=== PATIENT | male | born 1975 | race Caucasian/White ===

== ENCOUNTER 2019-02-20 09:31 | Inpatient (IN) | payer OTHER ==
[~2019-02-20] VITALS: Ht 167.6 cm; Wt 117.4 kg
[~2019-02-20 09:31] MED LIST: ASPI81TA45 PO; GABA300C10 PO; GLIP5TAB10 PO; HYDR-3307 PO; INSU100I11 SQ-INSULIN; LOSA25TA25 PO; MELO7.5T31 PO; METF500T17 PO; METH750T2 PO; ONDA4TAB13 PO; PANT40TA5 PO; PROP60CA PO; SUCR1TAB33 PO
--- NOTE | 2019-02-20 10:25 | NUR ---
PT TO ED FOR N/V AND DIZZINESS SINCE WEDNESDAY. PT CONNECTED TO MONITORS. TACHY, 120S. ALL OTHER VSS ON RA. EDPA TO BS FOR ASSESSMENT. FSBG 338. AWAITING ORDERS.
--- NOTE | 2019-02-20 10:46 | NUR ---
PT RESTING IN ROOM. HTN 191/110, TACHY 120s, ALL OTHER VSS ON RA. LAB TO BS TO DRAW. AWAITING RESULTS. 2 RNs ATTEMPTING IV. MAY NEED US GUIDED IV. NO NEEDS EXPRESSED. CALL LIGHT WTIHIN REACH.
[2019-02-20 10:56] LABS: MEAN CORPUSCULAR HEMOGLOBIN 29.1 pg (27.5-34.5); MEAN CORPUSCULAR HGB CONC 32.6 g/dL (33.2-36.2); MEAN CORPUSCULAR VOLUME 89.2 fL (81-97); PLATELET COUNT 264 x10^3/uL (130-400); RED BLOOD COUNT 5.17 x10^6/uL (4.38-5.82); RED CELL DISTRIBUTION WIDTH 12.4 % (9.4-14.8)
[2019-02-20 10:58] LABS: MD YES
[2019-02-20] MEDS ORDERED: SODIUM CHLORIDE 0.9% 1,000ML IVBOLUS ONE ×2 (11:00→11:30)
[2019-02-20] MEDS ORDERED: ONDANSETRON 2MG/ML, 2ML IVPush ONE (11:00)
[2019-02-20] MEDS ORDERED: MORPHINE SULFATE 4 MG/ML, 1ML IVPush PRN (11:00)
[2019-02-20 11:07] LABS: ALANINE AMINOTRANSFERASE 16 U/L (12-78); ALBUMIN 2.9 g/dL (3.4-5.0); ANION GAP 15 mmol/L (5-15); CALCIUM 9.4 mg/dL (8.5-10.1); CHLORIDE 98 mmol/L (98-107); CREATININE 1.02 mg/dL (0.7-1.3)
[2019-02-20] MEDS ORDERED: MORPHINE SULFATE 4 MG/ML, 1ML ONE (11:07)
[2019-02-20] MEDS ORDERED: ONDANSETRON 2MG/ML, 2ML ONE (11:07)
[2019-02-20 11:09] LABS: ALKALINE PHOSPHATASE 110 U/L (45-117); BILIRUBIN,TOTAL 1.4 mg/dL (0.2-1.0); TOTAL PROTEIN 8.2 g/dL (6.4-8.2)
--- NOTE | 2019-02-20 11:16 | NUR ---
PT RESTING IN ROOM. VS UNCHANGED. IV ESTABLISHED AND MEDICATIONS ADMINISTERED. IVF INFUSING. NO NEEDS EXPRESSED. CALL LIGHT IN REACH. AWAITING LAB RESULTS.
[2019-02-20 11:36] LABS: <PLATELET ESTIMATE> ADEQUATE; <PLT MORPHOLOGY> NORMAL PLT MORPH; BANDS%(MANUAL) 3 % (0-7); LYMPH#(MANUAL) 1.87 x10^3/uL (1-3.4); LYMPHS% (MANUAL) 8 % (22-44); MONOS% (MANUAL) 3 % (2-9); POLYCHROMASIA 1+; SEG#(MANUAL) 20.12 x10^3/uL (1.8-6.8); SEGS% (MANUAL) 86 % (42-75)
[2019-02-20 11:48] LABS: ACETONE, SERUM Large (80mg/dL) mg/dL (Negative)
--- NOTE | 2019-02-20 11:48 | NUR ---
PT RESTING IN ROOM. VS UNCHANGED. IVF INFUSING. LAB AT BS AT THIS TIME TO DRAW ADD ON LABS. NO NEEDS EXPRESSED. CALL LIGHT IN REACH. PT STATES UNABLE TO PROVIDE UA SAMPLE AT THIS TIME.
[2019-02-20] MEDS ORDERED: LIDOCAINE-MPF 1%, 5ML INFIL ONE (12:00)
--- NOTE | 2019-02-20 12:12 | NUR ---
ANDERS RN: RN HELPED PT TAKE OF PANTS. PT WAS ABLE TO PROVIDE PRIMARY RN WITH A URINE SAMPLE. COLLECTED AND SENT TO LAB.
--- NOTE | 2019-02-20 12:20 | NUR ---
pt to ct at this time.
[2019-02-20 12:27] LABS: MICROSCOPIC AUTO
[2019-02-20 12:28] LABS: CULTURE INDICATED? NO
[2019-02-20] MEDS ORDERED: LIDOCAINE-MPF 1%, 5ML ONE (12:29)
--- NOTE | 2019-02-20 12:40 | NUR ---
pt back from ct.
--- NOTE | 2019-02-20 13:00 | NUR ---
pt resting in room with wet cloth over face. vs unchanged. no needs expressed. luis miguel light within reach. awaiting ct results.
[2019-02-20] MEDS ORDERED: VANCOMYCIN 2,000 MG in SODIUM CHLORIDE 0.9% 500 ML IV ONE (13:30)
[2019-02-20] MEDS ORDERED: VANCOMYCIN PER PHARMACY MC ONE (13:30)
--- NOTE | 2019-02-20 13:50 | NUR ---
christina to bs for I&D.
[2019-02-20] MEDS ORDERED: VANCOMYCIN 1,700 MG in SODIUM CHLORIDE 0.9% 250 ML IVPB SCH (14:02)
[2019-02-20] MEDS ORDERED: METOCLOPRAMIDE 5 MG/ML, 2ML ONE (14:06)
[2019-02-20] MEDS ORDERED: LABETALOL 5MG/ML, 20ML IVPush PRN (14:30)
[2019-02-20] MEDS ORDERED: GUAIFENESIN/DM 200-20MG, 10ML UDC PO PRN (14:30)
[2019-02-20] MEDS ORDERED: VANCOMYCIN PER PHARMACY MC PRN (14:30)
[2019-02-20] MEDS ORDERED: DOCUSATE 100 MG CAPSULE PO PRN (14:30)
[2019-02-20] MEDS ORDERED: METOCLOPRAMIDE 5 MG/ML, 2ML IVPush ONE (14:30)
[2019-02-20] MEDS ORDERED: LIDODERM 5% PATCH TD PRN (14:30)
[2019-02-20] MEDS ORDERED: hydrALAzine 20 MG/ML, 1ML IVPush PRN (14:30)
[2019-02-20 14:41] VITALS: BP 117/91
[2019-02-20] MEDS ORDERED: PHARMACOKINETIC MONITORING MC PRN (15:00)
[2019-02-20] MEDS ORDERED: PHARMACOKINETIC CONSULTATION MC ONE (15:00)
[2019-02-20] MEDS ORDERED: MELO7.5T5 PO (15:03)
[2019-02-20] MEDS ORDERED: GABA-826 PO (15:03)
[2019-02-20] MEDS ORDERED: MUPI15CR9 TP (15:04)
[2019-02-20] MEDS ORDERED: AMOX-291 PO (15:04)
[2019-02-20] MEDS ORDERED: CLAR-36 PO (15:04)
[2019-02-20 15:05] LABS: FREE T4 (FREE THYROXINE) 1.95 ng/dL (0.76-1.46); THYROID STIMULATING HORMONE 1.22 mIU/L (0.358-3.740)
[2019-02-20] MEDS ORDERED: OMNIPAQUE 350 MG/ML, 100ML BOTTLE ONE (15:33)
[2019-02-20 16:17] LABS: TROPONIN I < 0.015 ng/mL (0.000-0.045)
[2019-02-20] MEDS: GABAPENTIN 100 MG CAPSULE PO SCH ×2 (17:03→17:15)
[2019-02-20] MEDS: SUCRALFATE 1 GM TABLET PO SCH ×2 (17:03→20:25)
[2019-02-20] MEDS: HYDROcodone/APAP 10/325 MG TABLET PO PRN (17:13)
[2019-02-20] MEDS: ONDANSETRON ODT 4 MG PO PRN (17:14)
[2019-02-20] MEDS: PIPERACILLIN/TAZO/PMX 3.375GM 50 ML IV SCH ×2 (17:16→23:04)
[2019-02-20] MEDS: INSULIN LISPRO 100 UNITS/ML, PEN SQ-INSULIN SCH ×2 (17:46→20:30)
[2019-02-20 18:37] VITALS: BP 130/86
[2019-02-20] MEDS: SODIUM CHLORIDE 0.9% 1,000 ML IV SCH (20:31)
[2019-02-20] MEDS ORDERED: CLARITHROMYCIN 500 MG TABLET PO SCH (21:00)
[2019-02-20] MEDS ORDERED: AMOXICILLIN 500 MG CAPSULE PO SCH (21:00)
[2019-02-21 01:09] VITALS: BP 114/78
[2019-02-21] MEDS: HYDROcodone/APAP 10/325 MG TABLET PO PRN ×2 (04:26→18:08)
[2019-02-21] MEDS: ONDANSETRON ODT 4 MG PO PRN ×2 (04:27→10:23)
[2019-02-21] MEDS: PANTOPROZOLE 40MG TABLET PO SCH (04:33)
[2019-02-21 05:50] LABS: ALBUMIN 2.2 g/dL (3.4-5.0); ANION GAP 9 mmol/L (5-15); CALCIUM 8.6 mg/dL (8.5-10.1); CHLORIDE 107 mmol/L (98-107)
[2019-02-21 05:51] LABS: MEAN CORPUSCULAR HEMOGLOBIN 29.9 pg (27.5-34.5); MEAN CORPUSCULAR VOLUME 90.7 fL (81-97); MEAN PLATELET VOLUME 9.5 fL (7.4-10.4); PLATELET COUNT 274 x10^3/uL (130-400); RED BLOOD COUNT 4.53 x10^6/uL (4.38-5.82); RED CELL DISTRIBUTION WIDTH 12.7 % (9.4-14.8)
[2019-02-21 05:55] LABS: ALANINE AMINOTRANSFERASE 12 U/L (12-78); ALKALINE PHOSPHATASE 90 U/L (45-117); BILIRUBIN,TOTAL 0.6 mg/dL (0.2-1.0); CREATININE 0.94 mg/dL (0.7-1.3); TOTAL PROTEIN 6.9 g/dL (6.4-8.2)
[2019-02-21] MEDS: PIPERACILLIN/TAZO/PMX 3.375GM 50 ML IV SCH ×3 (06:19→23:35)
[2019-02-21 06:23] LABS: MD YES
[2019-02-21 06:25] LABS: <PLT MORPHOLOGY> NORMAL PLT MORPH; <RBC MORPHOLOGY> NORMAL; BAND#(MANUAL) 0.41 x10^3/uL; BANDS%(MANUAL) 2 % (0-7); BASOS% (MANUAL) 1 % (0-1); LYMPH#(MANUAL) 3.26 x10^3/uL (1-3.4); LYMPHS% (MANUAL) 16 % (22-44); MONOS#(MANUAL) 1.22 x10^3/uL (0.3-2.7); MONOS% (MANUAL) 6 % (2-9); SEGS% (MANUAL) 75 % (42-75)
[2019-02-21] MEDS: SUCRALFATE 1 GM TABLET PO SCH (07:00)
[2019-02-21 07:06] LABS: <PLATELET ESTIMATE> ADEQUATE
[2019-02-21 07:08] VITALS: BP 131/84
[2019-02-21] MEDS ORDERED: LOSARTAN 25MG TABLET PO SCH (09:00)
[2019-02-21] MEDS: INSULIN LISPRO 100 UNITS/ML, PEN SQ-INSULIN SCH ×4 (09:33→20:06)
[2019-02-21] MEDS: SODIUM CHLORIDE 0.9% 1,000 ML IV SCH (09:42)
[2019-02-21] MEDS: PROPRANOLOL 60 MG CAP.SA.24H PO SCH (10:23)
[2019-02-21] MEDS: GABAPENTIN 100 MG CAPSULE PO SCH ×3 (10:23→20:05)
[2019-02-21] MEDS: VANCOMYCIN 2,000 MG in SODIUM CHLORIDE 0.9% 500 ML IV SCH (11:57)
[2019-02-21] MEDS: SUCRALFATE 1 GM/10 ML UDC PO SCH ×3 (11:57→20:05)
[2019-02-21 13:10] VITALS: BP 121/85
[2019-02-21] MEDS ORDERED: DULA0.75 SQ (13:56)
[2019-02-21] MEDS: INSULIN GLARGINE 100 UNITS/ML, PEN SQ-INSULIN SCH ×2 (15:58→20:07)
[2019-02-21] MEDS: METOCLOPRAMIDE 5 MG/ML, 2ML IVPush PRN (18:11)
[2019-02-21 20:42] VITALS: BP 105/72
[2019-02-22 01:35] VITALS: BP 129/89
[2019-02-22] MEDS: METOCLOPRAMIDE 5 MG/ML, 2ML IVPush PRN ×3 (01:49→17:19)
[2019-02-22] MEDS ORDERED: HYDROcodone/APAP 5/325 TABLET PO ONE (02:30)
[2019-02-22] MEDS ORDERED: LORazepam 0.5MG TABLET PO ONE (03:00)
[2019-02-22] MEDS: VANCOMYCIN 2,000 MG in SODIUM CHLORIDE 0.9% 500 ML IV SCH (05:45)
[2019-02-22] MEDS: PANTOPROZOLE 40MG TABLET PO SCH (05:45)
[2019-02-22 06:22] LABS: MEAN CORPUSCULAR HGB CONC 32.5 g/dL (33.2-36.2); MEAN CORPUSCULAR VOLUME 89.2 fL (81-97); PLATELET COUNT 257 x10^3/uL (130-400); RED BLOOD COUNT 4.16 x10^6/uL (4.38-5.82); RED CELL DISTRIBUTION WIDTH 13.2 % (9.4-14.8)
[2019-02-22 06:29] LABS: ANION GAP 9 mmol/L (5-15); CALCIUM 8.6 mg/dL (8.5-10.1); CHLORIDE 110 mmol/L (98-107)
[2019-02-22 06:30] LABS: CREATININE 1.31 mg/dL (0.7-1.3)
[2019-02-22 06:55] LABS: BASOPHILS # (AUTO) 0.04 x10^3/uL (0-0.1); BASOPHILS % (AUTO) 0 % (0-1); EOSINOPHILS # (AUTO) 0.27 x10^3/uL (0-0.4); EOSINOPHILS % (AUTO) 2 % (1-7); LYMPHOCYTES # (AUTO) 2.78 x10^3/uL (1-3.4); LYMPHOCYTES % (AUTO) 17 % (22-44); MD SCAN; MONOCYTES # (AUTO) 0.82 x10^3/uL (0.2-0.8); MONOCYTES % (AUTO) 5 % (2-9); NEUTROPHILS # (AUTO) 12.24 x10^3/uL (1.8-6.8); NEUTROPHILS % (AUTO) 76 % (42-75)
[2019-02-22] MEDS: INSULIN LISPRO 100 UNITS/ML, PEN SQ-INSULIN SCH ×4 (07:00→20:14)
[2019-02-22 07:15] VITALS: BP 122/83
[2019-02-22] MEDS: PIPERACILLIN/TAZO/PMX 3.375GM 50 ML IV SCH (08:45)
[2019-02-22] MEDS: SUCRALFATE 1 GM/10 ML UDC PO SCH ×4 (08:45→20:14)
[2019-02-22] MEDS: PROPRANOLOL 60 MG CAP.SA.24H PO SCH (08:46)
[2019-02-22] MEDS: INSULIN GLARGINE 100 UNITS/ML, PEN SQ-INSULIN SCH ×2 (08:46→20:15)
[2019-02-22] MEDS: GABAPENTIN 100 MG CAPSULE PO SCH ×3 (08:46→20:14)
[2019-02-22] MEDS: SODIUM CHLORIDE 0.9% 1,000 ML IV SCH (11:30)
[2019-02-22 14:16] VITALS: BP 141/88
[2019-02-22] MEDS: morphine SULFATE 10 MG/ML, 1ML IVPush PRN (14:42)
[2019-02-22] MEDS: AMOXICILLIN/CLAV 875-125MG TABLET PO SCH (14:42)
[2019-02-22] MEDS ORDERED: POTASSIUM CHLORIDE 20 MEQ TAB.ER.PRT PO ONE (18:30)
[2019-02-22 20:08] VITALS: BP 131/83
[2019-02-23] MEDS: METOCLOPRAMIDE 5 MG/ML, 2ML IVPush PRN ×3 (01:19→15:20)
[2019-02-23] MEDS: morphine SULFATE 10 MG/ML, 1ML IVPush PRN ×2 (01:20→10:40)
[2019-02-23 01:54] VITALS: BP 134/81
[2019-02-23] MEDS: AMOXICILLIN/CLAV 875-125MG TABLET PO SCH ×2 (02:42→15:20)
[2019-02-23] MEDS: ONDANSETRON ODT 4 MG PO PRN ×3 (05:03→17:20)
[2019-02-23] MEDS: PANTOPROZOLE 40MG TABLET PO SCH (05:05)
[2019-02-23 06:23] LABS: CLOSTRIDIUM DIFFICILE ANTIGEN NEGATIVE; CLOSTRIDIUM DIFFICILE TOXIN NEGATIVE (Negative)
[2019-02-23 08:20] VITALS: BP 129/82
[2019-02-23] MEDS: GABAPENTIN 100 MG CAPSULE PO SCH ×3 (08:26→21:50)
[2019-02-23] MEDS: PROPRANOLOL 60 MG CAP.SA.24H PO SCH (08:27)
[2019-02-23] MEDS: SUCRALFATE 1 GM/10 ML UDC PO SCH ×4 (08:27→21:50)
[2019-02-23] MEDS: INSULIN GLARGINE 100 UNITS/ML, PEN SQ-INSULIN SCH ×2 (08:28→21:51)
[2019-02-23] MEDS: INSULIN LISPRO 100 UNITS/ML, PEN SQ-INSULIN SCH ×4 (08:29→21:51)
[2019-02-23 08:53] LABS: BASOPHILS # (AUTO) 0.01 x10^3/uL (0-0.1); BASOPHILS % (AUTO) 0 % (0-1); EOSINOPHILS # (AUTO) 0.31 x10^3/uL (0-0.4); EOSINOPHILS % (AUTO) 2 % (1-7); LYMPHOCYTES # (AUTO) 2.79 x10^3/uL (1-3.4); LYMPHOCYTES % (AUTO) 20 % (22-44); MD NO; MEAN CORPUSCULAR HGB CONC 32.6 g/dL (33.2-36.2); MEAN CORPUSCULAR VOLUME 89.1 fL (81-97); MEAN PLATELET VOLUME 8.5 fL (7.4-10.4); MONOCYTES # (AUTO) 0.73 x10^3/uL (0.2-0.8); MONOCYTES % (AUTO) 5 % (2-9); NEUTROPHILS # (AUTO) 10.44 x10^3/uL (1.8-6.8); NEUTROPHILS % (AUTO) 73 % (42-75); PLATELET COUNT 302 x10^3/uL (130-400); RED CELL DISTRIBUTION WIDTH 13.1 % (9.4-14.8)
[2019-02-23 09:04] LABS: ANION GAP 7 mmol/L (5-15); CALCIUM 8.7 mg/dL (8.5-10.1); CHLORIDE 108 mmol/L (98-107); CREATININE 1.65 mg/dL (0.7-1.3)
[2019-02-23] MEDS: SODIUM CHLORIDE 0.9% 1,000 ML IV SCH (10:40)
[2019-02-23 12:32] VITALS: BP 110/72
[2019-02-23] MEDS ORDERED: PHARMACY MAY ADJ FOR RENAL FX MC PRN (14:30)
[2019-02-23] MEDS: LACTOBACILLUS CHEW TABLET PO SCH ×3 (15:19→21:50)
[2019-02-23 19:43] VITALS: BP 122/82
[2019-02-23] MEDS: HYDROcodone/APAP 10/325 MG TABLET PO PRN (22:05)
[2019-02-24] MEDS: SODIUM CHLORIDE 0.9% 1,000 ML IV SCH ×2 (00:06→13:38)
[2019-02-24 00:30] VITALS: BP 97/68
[2019-02-24] MEDS: AMOXICILLIN/CLAV 875-125MG TABLET PO SCH ×2 (02:59→14:30)
[2019-02-24] MEDS: LACTOBACILLUS CHEW TABLET PO SCH ×4 (05:22→21:38)
[2019-02-24] MEDS: PANTOPROZOLE 40MG TABLET PO SCH (05:22)
[2019-02-24 07:24] VITALS: BP 135/84
[2019-02-24] MEDS: GABAPENTIN 100 MG CAPSULE PO SCH ×3 (08:37→21:38)
[2019-02-24] MEDS: PROPRANOLOL 60 MG CAP.SA.24H PO SCH (08:37)
[2019-02-24] MEDS: SUCRALFATE 1 GM/10 ML UDC PO SCH ×4 (08:37→21:38)
[2019-02-24] MEDS: METOCLOPRAMIDE 5 MG/ML, 2ML IVPush PRN ×2 (08:37→21:38)
[2019-02-24] MEDS: INSULIN GLARGINE 100 UNITS/ML, PEN SQ-INSULIN SCH ×2 (08:38→21:54)
[2019-02-24] MEDS: INSULIN LISPRO 100 UNITS/ML, PEN SQ-INSULIN SCH ×4 (08:39→21:53)
[2019-02-24 10:21] LABS: ANION GAP 9 mmol/L (5-15); CALCIUM 8.7 mg/dL (8.5-10.1); CHLORIDE 110 mmol/L (98-107); CREATININE 1.67 mg/dL (0.7-1.3)
[2019-02-24] MEDS: morphine SULFATE 10 MG/ML, 1ML IVPush PRN (11:24)
[2019-02-24 13:10] VITALS: BP 137/86
[2019-02-24 18:42] VITALS: BP 140/85
[2019-02-24] MEDS: HYDROcodone/APAP 10/325 MG TABLET PO PRN (21:54)
[2019-02-25 01:14] VITALS: BP 135/83
[2019-02-25] MEDS: AMOXICILLIN/CLAV 875-125MG TABLET PO SCH ×2 (02:42→15:04)
[2019-02-25] MEDS: PANTOPROZOLE 40MG TABLET PO SCH (05:08)
[2019-02-25] MEDS: LACTOBACILLUS CHEW TABLET PO SCH ×4 (05:08→20:09)
[2019-02-25 05:52] LABS: BASOPHILS % (AUTO) 1 % (0-1); EOSINOPHILS # (AUTO) 0.42 x10^3/uL (0-0.4); EOSINOPHILS % (AUTO) 3 % (1-7); LYMPHOCYTES # (AUTO) 2.87 x10^3/uL (1-3.4); LYMPHOCYTES % (AUTO) 18 % (22-44); MD NO; MEAN CORPUSCULAR HEMOGLOBIN 29.1 pg (27.5-34.5); MEAN CORPUSCULAR HGB CONC 32.3 g/dL (33.2-36.2); MEAN CORPUSCULAR VOLUME 90.2 fL (81-97); MEAN PLATELET VOLUME 8.3 fL (7.4-10.4); MONOCYTES # (AUTO) 1.01 x10^3/uL (0.2-0.8); MONOCYTES % (AUTO) 6 % (2-9); NEUTROPHILS # (AUTO) 11.22 x10^3/uL (1.8-6.8); NEUTROPHILS % (AUTO) 72 % (42-75); PLATELET COUNT 312 x10^3/uL (130-400); RED BLOOD COUNT 4.57 x10^6/uL (4.38-5.82); RED CELL DISTRIBUTION WIDTH 12.7 % (9.4-14.8)
[2019-02-25 06:03] LABS: ALANINE AMINOTRANSFERASE 14 U/L (12-78); ALBUMIN 2.2 g/dL (3.4-5.0); ANION GAP 6 mmol/L (5-15); CALCIUM 8.6 mg/dL (8.5-10.1); CHLORIDE 109 mmol/L (98-107); CREATININE 1.65 mg/dL (0.7-1.3)
[2019-02-25 06:05] LABS: ALKALINE PHOSPHATASE 68 U/L (45-117); BILIRUBIN,TOTAL 0.1 mg/dL (0.2-1.0); TOTAL PROTEIN 6.7 g/dL (6.4-8.2)
[2019-02-25 07:10] VITALS: BP 128/84
[2019-02-25] MEDS: SUCRALFATE 1 GM/10 ML UDC PO SCH ×4 (08:43→20:09)
[2019-02-25] MEDS: GABAPENTIN 100 MG CAPSULE PO SCH ×3 (08:43→20:08)
[2019-02-25] MEDS: METOCLOPRAMIDE 5 MG/ML, 2ML IVPush PRN ×2 (08:44→20:08)
[2019-02-25] MEDS: PROPRANOLOL 60 MG CAP.SA.24H PO SCH (08:44)
[2019-02-25] MEDS: INSULIN GLARGINE 100 UNITS/ML, PEN SQ-INSULIN SCH ×2 (08:45→22:01)
[2019-02-25] MEDS: INSULIN LISPRO 100 UNITS/ML, PEN SQ-INSULIN SCH ×4 (08:45→21:59)
[2019-02-25] MEDS: SODIUM CHLORIDE 0.9% 1,000 ML IV SCH ×2 (08:52→22:38)
[2019-02-25] MEDS ORDERED: INSULIN GLARGINE 100 UNITS/ML, PEN SQ-INSULIN ONE (12:30)
[2019-02-25 14:00] VITALS: BP 147/87
[2019-02-25] MEDS: morphine SULFATE 10 MG/ML, 1ML IVPush PRN (14:59)
[2019-02-25 18:43] VITALS: BP 162/101
[2019-02-25] MEDS: HYDROcodone/APAP 10/325 MG TABLET PO PRN (20:08)
[2019-02-25 21:50] VITALS: BP 126/83
[2019-02-26] MEDS: AMOXICILLIN/CLAV 875-125MG TABLET PO SCH ×2 (02:31→14:49)
[2019-02-26 04:46] VITALS: BP 156/89
[2019-02-26] MEDS: PANTOPROZOLE 40MG TABLET PO SCH (05:09)
[2019-02-26] MEDS: LACTOBACILLUS CHEW TABLET PO SCH ×4 (05:09→20:48)
[2019-02-26 07:12] VITALS: BP 160/90
[2019-02-26] MEDS: SUCRALFATE 1 GM/10 ML UDC PO SCH ×4 (07:33→20:48)
[2019-02-26] MEDS: METOCLOPRAMIDE 5 MG/ML, 2ML IVPush PRN ×2 (07:33→20:34)
[2019-02-26] MEDS: INSULIN LISPRO 100 UNITS/ML, PEN SQ-INSULIN SCH ×4 (07:34→20:49)
[2019-02-26] MEDS: SODIUM CHLORIDE 0.9% 1,000 ML IV SCH ×2 (07:38→18:18)
[2019-02-26] MEDS: GABAPENTIN 100 MG CAPSULE PO SCH ×3 (09:34→20:48)
[2019-02-26] MEDS: PROPRANOLOL 60 MG CAP.SA.24H PO SCH (09:35)
[2019-02-26] MEDS: INSULIN GLARGINE 100 UNITS/ML, PEN SQ-INSULIN SCH ×2 (09:36→20:49)
[2019-02-26] MEDS: morphine SULFATE 10 MG/ML, 1ML IVPush PRN (11:50)
[2019-02-26 12:10] LABS: BASOPHILS % (AUTO) 0 % (0-1); EOSINOPHILS # (AUTO) 0.32 x10^3/uL (0-0.4); EOSINOPHILS % (AUTO) 2 % (1-7); LYMPHOCYTES # (AUTO) 2.12 x10^3/uL (1-3.4); LYMPHOCYTES % (AUTO) 13 % (22-44); MD NO; MEAN CORPUSCULAR HEMOGLOBIN 29.5 pg (27.5-34.5); MEAN CORPUSCULAR HGB CONC 32.4 g/dL (33.2-36.2); MEAN CORPUSCULAR VOLUME 90.8 fL (81-97); MEAN PLATELET VOLUME 8.6 fL (7.4-10.4); MONOCYTES # (AUTO) 0.18 x10^3/uL (0.2-0.8); MONOCYTES % (AUTO) 1 % (2-9); NEUTROPHILS # (AUTO) 14.29 x10^3/uL (1.8-6.8); NEUTROPHILS % (AUTO) 85 % (42-75); PLATELET COUNT 325 x10^3/uL (130-400); RED BLOOD COUNT 4.63 x10^6/uL (4.38-5.82); RED CELL DISTRIBUTION WIDTH 12.7 % (9.4-14.8)
[2019-02-26 13:34] VITALS: BP 135/82
[2019-02-26 20:01] VITALS: BP 149/87
[2019-02-26] MEDS: HYDROcodone/APAP 10/325 MG TABLET PO PRN (20:48)
[2019-02-27] MEDS: AMOXICILLIN/CLAV 875-125MG TABLET PO SCH (02:30)
[2019-02-27] MEDS: SODIUM CHLORIDE 0.9% 1,000 ML IV SCH ×2 (02:38→17:38)
[2019-02-27 02:40] VITALS: BP 123/69
[2019-02-27 04:54] LABS: BASOPHILS # (AUTO) 0.06 x10^3/uL (0-0.1); BASOPHILS % (AUTO) 0 % (0-1); EOSINOPHILS # (AUTO) 0.46 x10^3/uL (0-0.4); EOSINOPHILS % (AUTO) 3 % (1-7); LYMPHOCYTES # (AUTO) 3.04 x10^3/uL (1-3.4); LYMPHOCYTES % (AUTO) 19 % (22-44); MD NO; MEAN CORPUSCULAR HEMOGLOBIN 29.3 pg (27.5-34.5); MEAN CORPUSCULAR HGB CONC 32.1 g/dL (33.2-36.2); MEAN CORPUSCULAR VOLUME 91.3 fL (81-97); MEAN PLATELET VOLUME 8.6 fL (7.4-10.4); MONOCYTES # (AUTO) 1.07 x10^3/uL (0.2-0.8); MONOCYTES % (AUTO) 7 % (2-9); NEUTROPHILS % (AUTO) 71 % (42-75); PLATELET COUNT 312 x10^3/uL (130-400); RED BLOOD COUNT 4.28 x10^6/uL (4.38-5.82); RED CELL DISTRIBUTION WIDTH 12.8 % (9.4-14.8)
[2019-02-27 05:05] LABS: ANION GAP 6 mmol/L (5-15); CALCIUM 8.4 mg/dL (8.5-10.1); CHLORIDE 110 mmol/L (98-107); CREATININE 1.49 mg/dL (0.7-1.3)
[2019-02-27] MEDS: LACTOBACILLUS CHEW TABLET PO SCH ×5 (05:57→21:00)
[2019-02-27] MEDS: PANTOPROZOLE 40MG TABLET PO SCH (05:57)
[2019-02-27] MEDS: INSULIN LISPRO 100 UNITS/ML, PEN SQ-INSULIN SCH ×4 (07:00→21:00)
[2019-02-27 07:20] VITALS: BP_SYST 114; BP_SYST 134; BP_DIAS 76; BP_DIAS 84
[2019-02-27] MEDS: PROPRANOLOL 60 MG CAP.SA.24H PO SCH (08:51)
[2019-02-27] MEDS: SUCRALFATE 1 GM/10 ML UDC PO SCH ×4 (08:51→22:19)
[2019-02-27] MEDS: GABAPENTIN 100 MG CAPSULE PO SCH ×3 (08:51→22:19)
[2019-02-27] MEDS: INSULIN GLARGINE 100 UNITS/ML, PEN SQ-INSULIN SCH ×2 (08:52→22:21)
[2019-02-27] MEDS: METOCLOPRAMIDE 5 MG/ML, 2ML IVPush PRN ×2 (08:57→22:22)
[2019-02-27] MEDS ORDERED: POTASSIUM CHLORIDE 40 MEQ in SODIUM CHLORIDE 0.9% 500 ML IV ONE (10:00)
[2019-02-27] MEDS ORDERED: PHARMACY INSTRUCTION MC SCH (10:00)
[2019-02-27] MEDS ORDERED: MAGNESIUM SULFATE PMX 2GM/50ML 50 ML IV ONE (10:00)
[2019-02-27] MEDS: PIPERACILLIN/TAZO/PMX 3.375GM 50 ML IV SCH ×3 (10:58→23:46)
[2019-02-27] MEDS: morphine SULFATE 10 MG/ML, 1ML IVPush PRN (11:10)
[2019-02-27 13:20] VITALS: BP 132/81
[2019-02-27 22:13] VITALS: BP 136/82
[2019-02-27] MEDS: HYDROcodone/APAP 10/325 MG TABLET PO PRN (22:21)
[2019-02-28 00:56] VITALS: BP 137/83
[2019-02-28] MEDS: SODIUM CHLORIDE 0.9% 1,000 ML IV SCH ×2 (03:37→13:30)
[2019-02-28] MEDS: LACTOBACILLUS CHEW TABLET PO SCH ×2 (05:18→09:24)
[2019-02-28] MEDS: PIPERACILLIN/TAZO/PMX 3.375GM 50 ML IV SCH ×2 (05:21→11:40)
[2019-02-28] MEDS: PANTOPROZOLE 40MG TABLET PO SCH (05:22)
[2019-02-28 06:13] LABS: BASOPHILS # (AUTO) 0.15 x10^3/uL (0-0.1); BASOPHILS % (AUTO) 1 % (0-1); EOSINOPHILS # (AUTO) 0.43 x10^3/uL (0-0.4); EOSINOPHILS % (AUTO) 3 % (1-7); LYMPHOCYTES # (AUTO) 3.55 x10^3/uL (1-3.4); LYMPHOCYTES % (AUTO) 25 % (22-44); MD NO; MEAN CORPUSCULAR HEMOGLOBIN 29.4 pg (27.5-34.5); MEAN CORPUSCULAR HGB CONC 32.6 g/dL (33.2-36.2); MEAN CORPUSCULAR VOLUME 90.2 fL (81-97); MEAN PLATELET VOLUME 8.5 fL (7.4-10.4); MONOCYTES # (AUTO) 0.93 x10^3/uL (0.2-0.8); MONOCYTES % (AUTO) 7 % (2-9); NEUTROPHILS # (AUTO) 9.16 x10^3/uL (1.8-6.8); NEUTROPHILS % (AUTO) 65 % (42-75); PLATELET COUNT 359 x10^3/uL (130-400); RED BLOOD COUNT 4.33 x10^6/uL (4.38-5.82)
[2019-02-28 06:25] LABS: ANION GAP 5 mmol/L (5-15); CALCIUM 8.2 mg/dL (8.5-10.1); CHLORIDE 110 mmol/L (98-107)
[2019-02-28 06:26] LABS: CREATININE 1.68 mg/dL (0.7-1.3)
[2019-02-28] MEDS: INSULIN LISPRO 100 UNITS/ML, PEN SQ-INSULIN SCH ×2 (07:00→11:00)
[2019-02-28 07:23] VITALS: BP 126/84
[2019-02-28] MEDS ORDERED: LOPERAMIDE 2 MG CAPSULE PO PRN (09:00)
[2019-02-28] MEDS: INSULIN GLARGINE 100 UNITS/ML, PEN SQ-INSULIN SCH (09:00)
[2019-02-28] MEDS: GABAPENTIN 100 MG CAPSULE PO SCH (09:22)
[2019-02-28] MEDS: PROPRANOLOL 60 MG CAP.SA.24H PO SCH (09:22)
[2019-02-28] MEDS: SUCRALFATE 1 GM/10 ML UDC PO SCH ×2 (09:22→11:41)
[2019-02-28] MEDS: POTASSIUM CHLORIDE 20 MEQ TAB.ER.PRT PO SCH ×2 (09:22→11:41)
[2019-02-28] MEDS: morphine SULFATE 10 MG/ML, 1ML IVPush PRN (11:41)
[2019-02-28 12:52] VITALS: BP 132/80
[2019-02-28] MEDS ORDERED: ACID1TAB7 PO (15:20)
[2019-02-28] MEDS ORDERED: AMOX1TAB64 PO ×2 (15:27)
[2019-02-28] MEDS ORDERED: SULF1TAB24 PO (15:27)
[2019-02-28] MEDS ORDERED: OMEP-110 PO (15:27)
[2019-02-28] MEDS ORDERED: SUCR1ORA5 PO (15:27)
[2019-02-28] MEDS ORDERED: INSU100I13 SQ-INSULIN (15:28)
[2019-02-28] MEDS ORDERED: SIMV40TA PO (15:31)
[2019-02-28] MEDS ORDERED: metFORMIN 500 MG TABLET PO SCH (17:00)
== END 2019-02-28 17:00 | disposition home or self-care (01) | DRG 853 ==
LOC: ED 12:07 → EDIP 13:23 → 4WST 14:19 → DCLOUNGE 02-28 16:37
PROVIDERS: ADMIT Internal Medicine; ATTEND Internal Medicine
PROC: 0J9C0ZZ Drainage of Pelvic Region Subcutaneous Tissue and Fascia, Open Approach (ICD-10-PCS; principal; 2019-02-20)
DX: A41.9 Sepsis, unspecified organism (principal); N17.0 Acute kidney failure with tubular necrosis; L02.214 Cutaneous abscess of groin; L03.314 Cellulitis of groin; Z68.41 Body mass index [BMI] 40.0-44.9, adult; R65.20 Severe sepsis without septic shock; B96.81 Helicobacter pylori [H. pylori] as the cause of diseases classified elsewhere; E86.0 Dehydration; E83.42 Hypomagnesemia; E87.6 Hypokalemia; I16.0 Hypertensive urgency; E11.43 Type 2 diabetes mellitus with diabetic autonomic (poly)neuropathy; K31.84 Gastroparesis; G89.29 Other chronic pain; M54.5 Low back pain; E11.65 Type 2 diabetes mellitus with hyperglycemia; A08.4 Viral intestinal infection, unspecified; B96.20 Unspecified Escherichia coli [E. coli] as the cause of diseases classified elsewhere; E66.9 Obesity, unspecified; Z79.4 Long term (current) use of insulin; Z86.19 Personal history of other infectious and parasitic diseases; Z90.49 Acquired absence of other specified parts of digestive tract; Z91.19 Patient's noncompliance with other medical treatment and regimen
CPT/HCPCS: 10060; 36415; 71046; 74177; 76770; 76857; 80048; 80053; 81001; 82010; 82800; 82962; 83036; 83605; 83690; 83735; 84100; 84132; 84439; 84443; 84484; 85025; 87040; 87046; 87070; 87077; 87186; 87205; 87324; 93005; 96361; 96374; 96375; G0378; J2405; J2543; J3370; J3480; Q0162; Q9967; J1815; J2270; J2765; J3475; J7030; J7040

== ENCOUNTER 2019-03-01 21:16 | Emergency (ER) | payer OTHER ==
[~2019-03-01] VITALS: Ht 167.6 cm; Wt 115.0 kg
[~2019-03-01 21:16] MED LIST changes: +ACID1TAB7 PO; +AMOX-291 PO; +AMOX1TAB64 PO; +CLAR-36 PO; +DULA0.75 SQ; +GABA-826 PO; +INSU100I13 SQ-INSULIN; +MELO7.5T5 PO; +MUPI15CR9 TP; +OMEP-110 PO; +SIMV40TA PO; +SUCR1ORA5 PO; +SULF1TAB24 PO
--- NOTE | 2019-03-01 21:55 | NUR ---
I WAS JUST DISCHARGED YESTERDAY FOR SEPSIS-REPORTS GROIN INFECTION REPORTED SOURCE. PT REPORTS N/V/D AND DIZZINESS TODAY. APPEARS PALE/VSS LINE PLACED/FROM WHICH LABS SENT
[2019-03-01] MEDS ORDERED: METOCLOPRAMIDE 5 MG/ML, 2ML IVPush ONE (22:00)
[2019-03-01] MEDS ORDERED: MORPHINE SULFATE 4 MG/ML, 1ML IVPush PRN (22:00)
[2019-03-01 22:09] LABS: MEAN CORPUSCULAR HGB CONC 32.8 g/dL (33.2-36.2); MEAN CORPUSCULAR VOLUME 88.3 fL (81-97); MEAN PLATELET VOLUME 8.3 fL (7.4-10.4); PLATELET COUNT 428 x10^3/uL (130-400); RED BLOOD COUNT 4.82 x10^6/uL (4.38-5.82); RED CELL DISTRIBUTION WIDTH 12.8 % (9.4-14.8)
[2019-03-01] MEDS ORDERED: PROCHLORPERAZINE 5 MG/ML, 2ML ONE (22:09)
[2019-03-01] MEDS ORDERED: MORPHINE SULFATE 4 MG/ML, 1ML ONE (22:10)
--- NOTE | 2019-03-01 22:10 | NUR ---
MEDICATED PER EMAR FOR ABD PAIN RATED 6/10
[2019-03-01 22:18] LABS: ALANINE AMINOTRANSFERASE 10 U/L (12-78); ALBUMIN 2.9 g/dL (3.4-5.0); ANION GAP 9 mmol/L (5-15); CALCIUM 9.3 mg/dL (8.5-10.1); CHLORIDE 102 mmol/L (98-107); CREATININE 1.85 mg/dL (0.7-1.3)
[2019-03-01 22:21] LABS: ALKALINE PHOSPHATASE 72 U/L (45-117); BILIRUBIN,TOTAL 0.3 mg/dL (0.2-1.0); TOTAL PROTEIN 8.5 g/dL (6.4-8.2)
--- NOTE | 2019-03-01 22:45 | NUR ---
REPORTS PAIN IMPROVED TO 6/10, NAUSEA COMPLETELY IMPROVED VITALS UPDATED UPDATED ON ESTIMATED POC
[2019-03-01 22:55] LABS: BASOPHILS # (AUTO) 0.32 x10^3/uL (0-0.1); BASOPHILS % (AUTO) 2 % (0-1); EOSINOPHILS # (AUTO) 0.24 x10^3/uL (0-0.4); EOSINOPHILS % (AUTO) 2 % (1-7); LYMPHOCYTES # (AUTO) 2.36 x10^3/uL (1-3.4); LYMPHOCYTES % (AUTO) 18 % (22-44); MD SCAN; MONOCYTES # (AUTO) 0.63 x10^3/uL (0.2-0.8); MONOCYTES % (AUTO) 5 % (2-9); NEUTROPHILS # (AUTO) 9.82 x10^3/uL (1.8-6.8); NEUTROPHILS % (AUTO) 73 % (42-75)
[2019-03-01] MEDS ORDERED: PROMETHAZINE 25 MG/ML, 1ML ONE (23:45)
--- NOTE | 2019-03-01 23:45 | NUR ---
Reviewed importance of filling outpatient abx. [facility] found open pharmacy with scripts in stock. ER provider re-wrote abx scripts as well as rx for nausea. Patient tolerating po fluids to bedside Medicated w/ IM phenergan for continued nausea per provider order
[2019-03-02] MEDS ORDERED: PROMETHAZINE 25 MG/ML, 1ML IM ONE
[2019-03-02 00:02] VITALS: BP 170/106
== END 2019-03-01 22:19 | disposition home or self-care (01) ==
LOC: ED 22:18
DX: K52.1 Toxic gastroenteritis and colitis (principal); R19.7 Diarrhea, unspecified; R11.2 Nausea with vomiting, unspecified; E10.65 Type 1 diabetes mellitus with hyperglycemia; M54.9 Dorsalgia, unspecified; G89.29 Other chronic pain; Z90.49 Acquired absence of other specified parts of digestive tract
CPT/HCPCS: 36415; 80053; 83690; 85025; 93005; 96372; 96374; 96375; 99284; J2270; J2550; J2765

== ENCOUNTER 2019-03-09 13:20 | Inpatient (IN) | payer OTHER ==
[~2019-03-09] VITALS: Ht 167.6 cm; Wt 126.0 kg
[2019-03-09 14:00] LABS: MEAN CORPUSCULAR HEMOGLOBIN 29.4 pg (27.5-34.5); MEAN CORPUSCULAR HGB CONC 33.2 g/dL (33.2-36.2); MEAN CORPUSCULAR VOLUME 88.6 fL (81-97); MEAN PLATELET VOLUME 8.8 fL (7.4-10.4); PLATELET COUNT 227 x10^3/uL (130-400); RED BLOOD COUNT 5.44 x10^6/uL (4.38-5.82); RED CELL DISTRIBUTION WIDTH 13.2 % (9.4-14.8)
[2019-03-09] MEDS ORDERED: METOCLOPRAMIDE 5 MG/ML, 2ML IVPush ONE (14:00)
[2019-03-09] MEDS ORDERED: MORPHINE SULFATE 4 MG/ML, 1ML IVPush PRN (14:00)
[2019-03-09] MEDS ORDERED: SODIUM CHLORIDE 0.9% 1,000ML IVBOLUS ONE ×2 (14:00→15:30)
[2019-03-09 14:11] LABS: ALBUMIN 2.8 g/dL (3.4-5.0); ANION GAP 14 mmol/L (5-15); CALCIUM 8.7 mg/dL (8.5-10.1); CHLORIDE 96 mmol/L (98-107)
--- NOTE | 2019-03-09 14:13 | NUR ---
URINE SENT TO LAB, PT UNABLE TO PROVIDE STOOL SAMPLE AT THIS TIME
[2019-03-09 14:27] LABS: ACETONE, SERUM Negative (Negative)
[2019-03-09 14:29] LABS: MD YES
[2019-03-09] MEDS ORDERED: MORPHINE SULFATE 4 MG/ML, 1ML ONE (14:29)
[2019-03-09] MEDS ORDERED: METOCLOPRAMIDE 5 MG/ML, 2ML ONE (14:29)
[2019-03-09 14:31] LABS: FIO2 ROOM AIR %
[2019-03-09 14:31] LABS: CULTURE INDICATED? YES; MICROSCOPIC INDICATED
[2019-03-09 14:34] LABS: ALBUMIN 2.8 g/dL (3.4-5.0); BILIRUBIN, DIRECT 0.2 mg/dL (0.1-0.2)
--- NOTE | 2019-03-09 14:35 | NUR ---
IV ESTABLISHED AND IVF INFUSING. PT MEDICATED PER MAR.
[2019-03-09 14:41] LABS: <PLATELET ESTIMATE> ADEQUATE; <PLT MORPHOLOGY> NORMAL PLT MORPH; ANISOCYTOSIS 1+; BAND#(MANUAL) 8.25 x10^3/uL; BANDS%(MANUAL) 22 % (0-7); MONOS#(MANUAL) 0.75 x10^3/uL (0.3-2.7); MONOS% (MANUAL) 2 % (2-9); PMNS WITH VACUOLES 1+; SEGS% (MANUAL) 76 % (42-75)
[2019-03-09 14:43] LABS: BILIRUBIN,INDIRECT 0.3 mg/dL (0.0-2.0); BILIRUBIN,TOTAL 0.5 mg/dL (0.2-1.0); TOTAL PROTEIN 8.3 g/dL (6.4-8.2)
--- NOTE | 2019-03-09 14:54 | NUR ---
PT TO CT
--- NOTE | 2019-03-09 15:07 | NUR ---
pt returned from ct
[2019-03-09] MEDS ORDERED: CEFTRIAXONE PMX 2GM/50ML 50 ML ONE (15:17)
[2019-03-09] MEDS ORDERED: CEFTRIAXONE PMX 2GM/50ML 50 ML IV ONE (15:30)
--- NOTE | 2019-03-09 16:09 | NUR ---
PT RESTING IN [facility], AWAITING BED ASSIGNMENT. IVF INFUSING
--- NOTE | 2019-03-09 16:46 | NUR ---
REPORT TO LUIZ LLAMAS
[2019-03-09] MEDS ORDERED: SODIUM CHLORIDE 0.9% 1,000 ML IV SCH (17:14)
[2019-03-09] MEDS ORDERED: ONDANSETRON ODT 4 MG PO PRN (17:30)
[2019-03-09] MEDS ORDERED: ACETAMINOPHEN 325 MG TABLET PO PRN (17:30)
[2019-03-09] MEDS ORDERED: ZOSYN PER PHARMACY MC PRN (17:30)
[2019-03-09] MEDS ORDERED: VANCOMYCIN PER PHARMACY MC PRN (17:30)
[2019-03-09] MEDS ORDERED: PHARMACOKINETIC MONITORING MC PRN (18:00)
[2019-03-09] MEDS ORDERED: VANCOMYCIN 2,000 MG in SODIUM CHLORIDE 0.9% 500 ML IV SCH (18:00)
[2019-03-09] MEDS ORDERED: PHARMACOKINETIC CONSULTATION MC ONE (18:00)
[2019-03-09 18:45] LABS: HEMOGLOBIN A1C 9.6 % (4.2-6.3)
[2019-03-09 19:42] VITALS: BP 134/79
[2019-03-09] MEDS: ONDANSETRON 2MG/ML, 2ML IVPush PRN (20:10)
[2019-03-09] MEDS: SUCRALFATE 1 GM/10 ML UDC PO SCH (20:11)
[2019-03-09] MEDS: LACTOBACILLUS CHEW TABLET PO SCH (20:12)
[2019-03-09] MEDS: HEPARIN 5,000 UNITS/ML, 1ML SQ SCH (20:12)
[2019-03-09] MEDS: INSULIN LISPRO 100 UNITS/ML, PEN SQ-INSULIN SCH (20:13)
[2019-03-09] MEDS: VANCOMYCIN 50 MG/ML ORAL SUSP PO SCH (20:25)
[2019-03-09] MEDS: PIPERACILLIN/TAZO/PMX 2.25GM 50 ML IVPB SCH (20:25)
[2019-03-10 01:10] LABS: CLOSTRIDIUM DIFFICILE ANTIGEN NEGATIVE; CLOSTRIDIUM DIFFICILE TOXIN NEGATIVE (Negative)
[2019-03-10 02:00] VITALS: BP 129/79
[2019-03-10] MEDS: VANCOMYCIN 50 MG/ML ORAL SUSP PO SCH (02:00)
[2019-03-10] MEDS ORDERED: PROMETHAZINE 25 MG/ML, 1ML IM ONE (04:00)
[2019-03-10] MEDS: HEPARIN 5,000 UNITS/ML, 1ML SQ SCH ×3 (04:11→20:11)
[2019-03-10 06:13] LABS: ANION GAP 11 mmol/L (5-15); CALCIUM 7.6 mg/dL (8.5-10.1); CHLORIDE 100 mmol/L (98-107); CREATININE 2.72 mg/dL (0.7-1.3)
[2019-03-10] MEDS: PIPERACILLIN/TAZO/PMX 2.25GM 50 ML IVPB SCH ×4 (06:37→18:03)
[2019-03-10 07:57] VITALS: BP 134/84
[2019-03-10] MEDS: SUCRALFATE 1 GM/10 ML UDC PO SCH ×4 (08:51→20:10)
[2019-03-10] MEDS: LACTOBACILLUS CHEW TABLET PO SCH ×3 (08:51→20:12)
[2019-03-10] MEDS: INSULIN LISPRO 100 UNITS/ML, PEN SQ-INSULIN SCH ×4 (08:52→20:11)
[2019-03-10] MEDS: INSULIN GLARGINE 100 UNITS/ML, PEN SQ-INSULIN SCH ×2 (09:43→20:12)
[2019-03-10] MEDS: PROMETHAZINE 25 MG/ML, 1ML IM PRN ×2 (12:24→19:13)
[2019-03-10 13:27] LABS: MEAN CORPUSCULAR HEMOGLOBIN 29.5 pg (27.5-34.5); MEAN CORPUSCULAR HGB CONC 33.3 g/dL (33.2-36.2); MEAN CORPUSCULAR VOLUME 88.7 fL (81-97); MEAN PLATELET VOLUME 8.9 fL (7.4-10.4); PLATELET COUNT 170 x10^3/uL (130-400); RED BLOOD COUNT 4.27 x10^6/uL (4.38-5.82); RED CELL DISTRIBUTION WIDTH 13.1 % (9.4-14.8)
[2019-03-10 13:33] LABS: HEMOGRAM NOTE RECHECKED
[2019-03-10 14:00] VITALS: BP 109/73
[2019-03-10 14:12] LABS: BASOPHILS # (AUTO) 0.01 x10^3/uL (0-0.1); BASOPHILS % (AUTO) 0 % (0-1); EOSINOPHILS # (AUTO) 0.44 x10^3/uL (0-0.4); EOSINOPHILS % (AUTO) 2 % (1-7); LYMPHOCYTES # (AUTO) 0.68 x10^3/uL (1-3.4); LYMPHOCYTES % (AUTO) 4 % (22-44); MD SCAN; MONOCYTES # (AUTO) 0.57 x10^3/uL (0.2-0.8); MONOCYTES % (AUTO) 3 % (2-9); NEUTROPHILS # (AUTO) 17.78 x10^3/uL (1.8-6.8); NEUTROPHILS % (AUTO) 91 % (42-75)
[2019-03-10 14:14] LABS: HCT (SEDRATE) 37.9 % (39.2-51.8)
[2019-03-10] MEDS: METOCLOPRAMIDE 5 MG/ML, 2ML IVPush PRN ×2 (15:38→20:07)
[2019-03-10] MEDS: SODIUM CHLORIDE 0.9% 1,000 ML IV SCH (18:03)
[2019-03-10 18:40] VITALS: BP 117/73
[2019-03-10] MEDS: OXYcodone IR 5MG TABLET PO PRN (20:10)
[2019-03-11] MEDS: SODIUM CHLORIDE 0.9% 1,000 ML IV SCH ×3 (00:26→20:57)
[2019-03-11] MEDS: METOCLOPRAMIDE 5 MG/ML, 2ML IVPush PRN ×3 (01:06→19:39)
[2019-03-11] MEDS: PIPERACILLIN/TAZO/PMX 2.25GM 50 ML IVPB SCH ×3 (01:06→12:06)
[2019-03-11] MEDS: OXYcodone IR 5MG TABLET PO PRN ×2 (01:12→20:58)
[2019-03-11 01:49] VITALS: BP 109/78
[2019-03-11] MEDS: HEPARIN 5,000 UNITS/ML, 1ML SQ SCH ×3 (05:32→20:59)
[2019-03-11 05:44] LABS: BASOPHILS # (AUTO) 0.03 x10^3/uL (0-0.1); BASOPHILS % (AUTO) 0 % (0-1); EOSINOPHILS # (AUTO) 0.75 x10^3/uL (0-0.4); EOSINOPHILS % (AUTO) 5 % (1-7); LYMPHOCYTES # (AUTO) 1.82 x10^3/uL (1-3.4); LYMPHOCYTES % (AUTO) 11 % (22-44); MD NO; MEAN CORPUSCULAR HEMOGLOBIN 29.4 pg (27.5-34.5); MEAN CORPUSCULAR HGB CONC 32.9 g/dL (33.2-36.2); MEAN CORPUSCULAR VOLUME 89.4 fL (81-97); MEAN PLATELET VOLUME 8.9 fL (7.4-10.4); MONOCYTES # (AUTO) 0.84 x10^3/uL (0.2-0.8); MONOCYTES % (AUTO) 5 % (2-9); NEUTROPHILS # (AUTO) 13.25 x10^3/uL (1.8-6.8); NEUTROPHILS % (AUTO) 79 % (42-75); PLATELET COUNT 152 x10^3/uL (130-400); RED BLOOD COUNT 3.92 x10^6/uL (4.38-5.82); RED CELL DISTRIBUTION WIDTH 13.5 % (9.4-14.8)
[2019-03-11 05:55] LABS: ALANINE AMINOTRANSFERASE 13 U/L (12-78); ANION GAP 9 mmol/L (5-15); CALCIUM 7.3 mg/dL (8.5-10.1); CHLORIDE 106 mmol/L (98-107)
[2019-03-11 05:57] LABS: ALKALINE PHOSPHATASE 60 U/L (45-117); BILIRUBIN,TOTAL 0.2 mg/dL (0.2-1.0); TOTAL PROTEIN 6.1 g/dL (6.4-8.2)
[2019-03-11] MEDS: INSULIN LISPRO 100 UNITS/ML, PEN SQ-INSULIN SCH ×4 (07:00→21:00)
[2019-03-11 07:52] VITALS: BP 113/82
[2019-03-11 08:37] LABS: C-REACTIVE PROTEIN, QUANT > 19.00 mg/dL (0.02-0.49)
[2019-03-11] MEDS: SUCRALFATE 1 GM/10 ML UDC PO SCH ×4 (08:54→20:57)
[2019-03-11] MEDS: LACTOBACILLUS CHEW TABLET PO SCH ×3 (08:54→21:00)
[2019-03-11] MEDS: POTASSIUM CHLORIDE 20 MEQ TAB.ER.PRT PO SCH ×2 (08:54→16:59)
[2019-03-11] MEDS: PROMETHAZINE 25 MG/ML, 1ML IM PRN ×3 (08:55→20:59)
[2019-03-11 08:59] LABS: HCT (SEDRATE) 35.1 % (39.2-51.8)
[2019-03-11] MEDS: INSULIN GLARGINE 100 UNITS/ML, PEN SQ-INSULIN SCH ×2 (09:01→20:59)
[2019-03-11 12:09] VITALS: BP 125/84
[2019-03-11] MEDS ORDERED: MAGNESIUM SULFATE 3 GM in SODIUM CHLORIDE 0.9% 100 ML IV ONE (12:30)
[2019-03-11] MEDS: PIPERACILLIN/TAZO/PMX 3.375GM 50 ML IV SCH (18:17)
[2019-03-11] MEDS: CHOLESTYRAMINE LIGHT 4GM PACKET PO SCH ×2 (18:18→21:00)
[2019-03-11 19:16] VITALS: BP 117/80
[2019-03-12] MEDS: PIPERACILLIN/TAZO/PMX 3.375GM 50 ML IV SCH ×5 (00:02→23:55)
[2019-03-12 02:22] VITALS: BP 139/90
[2019-03-12] MEDS: SODIUM CHLORIDE 0.9% 1,000 ML IV SCH ×4 (02:38→23:55)
[2019-03-12] MEDS: PROMETHAZINE 25 MG/ML, 1ML IM PRN ×3 (05:44→21:00)
[2019-03-12 06:00] LABS: BASOPHILS # (AUTO) 0.03 x10^3/uL (0-0.1); BASOPHILS % (AUTO) 0 % (0-1); EOSINOPHILS # (AUTO) 0.42 x10^3/uL (0-0.4); EOSINOPHILS % (AUTO) 3 % (1-7); LYMPHOCYTES % (AUTO) 16 % (22-44); MD NO; MEAN CORPUSCULAR HEMOGLOBIN 29.3 pg (27.5-34.5); MEAN CORPUSCULAR HGB CONC 32.9 g/dL (33.2-36.2); MEAN CORPUSCULAR VOLUME 89.1 fL (81-97); MEAN PLATELET VOLUME 9.4 fL (7.4-10.4); MONOCYTES % (AUTO) 7 % (2-9); NEUTROPHILS # (AUTO) 9.49 x10^3/uL (1.8-6.8); NEUTROPHILS % (AUTO) 74 % (42-75); PLATELET COUNT 115 x10^3/uL (130-400); RED BLOOD COUNT 3.66 x10^6/uL (4.38-5.82); RED CELL DISTRIBUTION WIDTH 13.6 % (9.4-14.8)
[2019-03-12 06:08] LABS: ALANINE AMINOTRANSFERASE 19 U/L (12-78); ALBUMIN 1.8 g/dL (3.4-5.0); ANION GAP 4 mmol/L (5-15); CALCIUM 7.5 mg/dL (8.5-10.1); CHLORIDE 109 mmol/L (98-107); CREATININE 1.87 mg/dL (0.7-1.3)
[2019-03-12 06:10] LABS: ALKALINE PHOSPHATASE 78 U/L (45-117); BILIRUBIN,TOTAL 0.4 mg/dL (0.2-1.0); TOTAL PROTEIN 6.2 g/dL (6.4-8.2)
[2019-03-12 06:47] VITALS: BP 129/86
[2019-03-12] MEDS: METOCLOPRAMIDE 5 MG/ML, 2ML IVPush PRN ×2 (08:56→17:19)
[2019-03-12] MEDS: INSULIN LISPRO 100 UNITS/ML, PEN SQ-INSULIN SCH ×4 (08:57→20:48)
[2019-03-12] MEDS: SUCRALFATE 1 GM/10 ML UDC PO SCH ×4 (08:57→20:47)
[2019-03-12] MEDS: LACTOBACILLUS CHEW TABLET PO SCH ×4 (09:00→20:50)
[2019-03-12] MEDS: CHOLESTYRAMINE LIGHT 4GM PACKET PO SCH ×3 (09:00→20:49)
[2019-03-12] MEDS: HEPARIN 5,000 UNITS/ML, 1ML SQ SCH ×2 (09:30→20:48)
[2019-03-12] MEDS: INSULIN GLARGINE 100 UNITS/ML, PEN SQ-INSULIN SCH ×2 (09:31→20:49)
[2019-03-12] MEDS: OXYcodone IR 5MG TABLET PO PRN ×2 (11:46→18:06)
[2019-03-12 13:02] VITALS: BP 133/85
[2019-03-12 19:40] VITALS: BP 133/90
[2019-03-13] MEDS: METOCLOPRAMIDE 5 MG/ML, 2ML IVPush PRN (00:43)
[2019-03-13] MEDS: OXYcodone IR 5MG TABLET PO PRN ×3 (00:43→21:44)
[2019-03-13 01:19] VITALS: BP 119/79
[2019-03-13 04:35] LABS: BASOPHILS # (AUTO) 0.04 x10^3/uL (0-0.1); BASOPHILS % (AUTO) 0 % (0-1); EOSINOPHILS # (AUTO) 0.46 x10^3/uL (0-0.4); EOSINOPHILS % (AUTO) 3 % (1-7); LYMPHOCYTES # (AUTO) 3.52 x10^3/uL (1-3.4); LYMPHOCYTES % (AUTO) 26 % (22-44); MD NO; MEAN CORPUSCULAR HEMOGLOBIN 29.5 pg (27.5-34.5); MEAN CORPUSCULAR HGB CONC 33.1 g/dL (33.2-36.2); MEAN PLATELET VOLUME 9.1 fL (7.4-10.4); MONOCYTES # (AUTO) 1.11 x10^3/uL (0.2-0.8); MONOCYTES % (AUTO) 8 % (2-9); NEUTROPHILS # (AUTO) 8.19 x10^3/uL (1.8-6.8); NEUTROPHILS % (AUTO) 62 % (42-75); PLATELET COUNT 137 x10^3/uL (130-400); RED CELL DISTRIBUTION WIDTH 13.8 % (9.4-14.8)
[2019-03-13 04:44] LABS: ANION GAP 8 mmol/L (5-15); CALCIUM 7.4 mg/dL (8.5-10.1); CHLORIDE 110 mmol/L (98-107); CREATININE 1.54 mg/dL (0.7-1.3)
[2019-03-13] MEDS: PIPERACILLIN/TAZO/PMX 3.375GM 50 ML IV SCH ×3 (05:57→17:25)
[2019-03-13] MEDS: SODIUM CHLORIDE 0.9% 1,000 ML IV SCH (05:58)
[2019-03-13] MEDS: INSULIN LISPRO 100 UNITS/ML, PEN SQ-INSULIN SCH ×4 (07:00→21:46)
[2019-03-13] MEDS: CHOLESTYRAMINE LIGHT 4GM PACKET PO SCH ×2 (07:44→07:46)
[2019-03-13] MEDS: HEPARIN 5,000 UNITS/ML, 1ML SQ SCH ×2 (07:44→21:47)
[2019-03-13] MEDS: SUCRALFATE 1 GM/10 ML UDC PO SCH ×4 (07:44→21:43)
[2019-03-13] MEDS: LACTOBACILLUS CHEW TABLET PO SCH ×4 (07:44→21:00)
[2019-03-13] MEDS: INSULIN GLARGINE 100 UNITS/ML, PEN SQ-INSULIN SCH ×2 (07:45→21:47)
[2019-03-13 07:50] LABS: HCT (SEDRATE) 31.2 % (39.2-51.8)
[2019-03-13] MEDS ORDERED: POTASSIUM CHLORIDE 20 MEQ TAB.ER.PRT PO ONE ×2 (08:30→11:30)
[2019-03-13 08:35] VITALS: BP 117/84
[2019-03-13] MEDS ORDERED: LACTATED RINGERS 1,000 ML IV SCH (09:00)
[2019-03-13] MEDS: POTASSIUM CHLORIDE 20 MEQ in LACTATED RINGERS 1,000 ML IV SCH ×2 (09:42→17:53)
[2019-03-13] MEDS: PROMETHAZINE 25 MG/ML, 1ML IM PRN ×2 (09:50→18:38)
[2019-03-13 10:10] LABS: HEMOGLOBIN A1C 9.6 % (4.2-6.3)
[2019-03-13 11:57] LABS: CREATININE,URINE RANDOM 70.2 mg/dL
[2019-03-13 15:59] VITALS: BP 137/93
[2019-03-13] MEDS ORDERED: METOCLOPRAMIDE 10MG TABLET ONE (16:13)
[2019-03-13] MEDS ORDERED: METOCLOPRAMIDE 10MG TABLET PO PRN (16:30)
[2019-03-13 19:25] VITALS: BP 137/88
[2019-03-14] MEDS ORDERED: MAALOX/HYOSCYAMINE/LIDOCAINE 45 ML BTL PO ONE
[2019-03-14] MEDS: PIPERACILLIN/TAZO/PMX 3.375GM 50 ML IV SCH ×4 (00:26→17:22)
[2019-03-14] MEDS: PROMETHAZINE 25 MG/ML, 1ML IM PRN (00:27)
[2019-03-14 00:32] VITALS: BP 152/97
[2019-03-14 05:42] LABS: BASOPHILS # (AUTO) 0.04 x10^3/uL (0-0.1); BASOPHILS % (AUTO) 0 % (0-1); EOSINOPHILS % (AUTO) 4 % (1-7); LYMPHOCYTES # (AUTO) 3.21 x10^3/uL (1-3.4); LYMPHOCYTES % (AUTO) 28 % (22-44); MD NO; MEAN CORPUSCULAR HEMOGLOBIN 28.8 pg (27.5-34.5); MEAN CORPUSCULAR HGB CONC 32.8 g/dL (33.2-36.2); MEAN CORPUSCULAR VOLUME 87.9 fL (81-97); MEAN PLATELET VOLUME 8.7 fL (7.4-10.4); MONOCYTES % (AUTO) 8 % (2-9); NEUTROPHILS # (AUTO) 6.75 x10^3/uL (1.8-6.8); NEUTROPHILS % (AUTO) 59 % (42-75); PLATELET COUNT 141 x10^3/uL (130-400); RED CELL DISTRIBUTION WIDTH 13.6 % (9.4-14.8)
[2019-03-14 06:05] LABS: ALBUMIN 1.8 g/dL (3.4-5.0); ANION GAP 8 mmol/L (5-15); CALCIUM 7.9 mg/dL (8.5-10.1); CHLORIDE 111 mmol/L (98-107)
[2019-03-14 06:10] LABS: ALANINE AMINOTRANSFERASE 19 U/L (12-78); ALKALINE PHOSPHATASE 82 U/L (45-117); BILIRUBIN,TOTAL 0.4 mg/dL (0.2-1.0); CREATININE 1.45 mg/dL (0.7-1.3); TOTAL PROTEIN 6.5 g/dL (6.4-8.2)
[2019-03-14] MEDS: INSULIN LISPRO 100 UNITS/ML, PEN SQ-INSULIN SCH ×4 (07:00→20:01)
[2019-03-14] MEDS: LACTOBACILLUS CHEW TABLET PO SCH ×3 (07:15→20:55)
[2019-03-14] MEDS ORDERED: MAGNESIUM SULFATE PMX 2GM/50ML 50 ML IV ONE (08:00)
[2019-03-14] MEDS: POTASSIUM CHLORIDE 20 MEQ in LACTATED RINGERS 1,000 ML IV SCH ×2 (08:31→16:03)
[2019-03-14] MEDS: SUCRALFATE 1 GM/10 ML UDC PO SCH ×4 (08:31→20:55)
[2019-03-14] MEDS: NEUTRA PHOS K 250 MG TABLET PO SCH ×4 (08:32→20:55)
[2019-03-14] MEDS: INSULIN GLARGINE 100 UNITS/ML, PEN SQ-INSULIN SCH ×2 (08:32→20:56)
[2019-03-14] MEDS: HEPARIN 5,000 UNITS/ML, 1ML SQ SCH ×2 (08:32→20:55)
[2019-03-14 09:22] VITALS: BP 140/94
[2019-03-14 09:57] LABS: HCT (SEDRATE) 31.7 % (39.2-51.8)
[2019-03-14 13:37] VITALS: BP 136/94
[2019-03-14] MEDS ORDERED: SODIUM PHOSPHATE 20 MMOL in SODIUM CHLORIDE 0.9% 500 ML IV ONE (14:30)
[2019-03-14] MEDS ORDERED: SODIUM PHOSPHATE 4 MEQ/ML IV SCH (14:30)
[2019-03-14 20:07] VITALS: BP 132/92
[2019-03-15] MEDS: POTASSIUM CHLORIDE 20 MEQ in LACTATED RINGERS 1,000 ML IV SCH ×4 (00:01→22:40)
[2019-03-15] MEDS: PIPERACILLIN/TAZO/PMX 3.375GM 50 ML IV SCH ×4 (00:01→17:39)
[2019-03-15 00:46] VITALS: BP 126/86
[2019-03-15] MEDS: ONDANSETRON 2MG/ML, 2ML IVPush PRN (04:38)
[2019-03-15 06:06] LABS: BASOPHILS # (AUTO) 0.04 x10^3/uL (0-0.1); BASOPHILS % (AUTO) 0 % (0-1); EOSINOPHILS # (AUTO) 0.49 x10^3/uL (0-0.4); EOSINOPHILS % (AUTO) 5 % (1-7); LYMPHOCYTES # (AUTO) 2.75 x10^3/uL (1-3.4); LYMPHOCYTES % (AUTO) 26 % (22-44); MD NO; MEAN CORPUSCULAR HEMOGLOBIN 29.3 pg (27.5-34.5); MEAN CORPUSCULAR HGB CONC 32.6 g/dL (33.2-36.2); MEAN PLATELET VOLUME 8.7 fL (7.4-10.4); MONOCYTES % (AUTO) 7 % (2-9); NEUTROPHILS # (AUTO) 6.54 x10^3/uL (1.8-6.8); NEUTROPHILS % (AUTO) 62 % (42-75); PLATELET COUNT 199 x10^3/uL (130-400); RED CELL DISTRIBUTION WIDTH 13.7 % (9.4-14.8)
[2019-03-15 06:21] LABS: ALANINE AMINOTRANSFERASE 15 U/L (12-78); ALBUMIN 1.7 g/dL (3.4-5.0); ANION GAP 6 mmol/L (5-15); CALCIUM 8.2 mg/dL (8.5-10.1); CHLORIDE 111 mmol/L (98-107)
[2019-03-15 06:23] LABS: ALKALINE PHOSPHATASE 70 U/L (45-117); BILIRUBIN,TOTAL 0.5 mg/dL (0.2-1.0); CREATININE 1.34 mg/dL (0.7-1.3); TOTAL PROTEIN 6.3 g/dL (6.4-8.2)
[2019-03-15 06:56] VITALS: BP 130/99
[2019-03-15] MEDS ORDERED: MAGNESIUM SULFATE 3 GM in SODIUM CHLORIDE 0.9% 100 ML IV ONE (08:00)
[2019-03-15] MEDS: NEUTRA PHOS K 250 MG TABLET PO SCH ×3 (08:49→15:46)
[2019-03-15] MEDS: LACTOBACILLUS CHEW TABLET PO SCH ×4 (08:49→20:48)
[2019-03-15] MEDS: INSULIN GLARGINE 100 UNITS/ML, PEN SQ-INSULIN SCH ×2 (08:49→20:47)
[2019-03-15] MEDS: SUCRALFATE 1 GM/10 ML UDC PO SCH ×4 (08:49→20:48)
[2019-03-15] MEDS: INSULIN LISPRO 100 UNITS/ML, PEN SQ-INSULIN SCH ×4 (08:51→20:47)
[2019-03-15] MEDS: HEPARIN 5,000 UNITS/ML, 1ML SQ SCH ×2 (08:52→20:48)
[2019-03-15] MEDS: OXYcodone IR 5MG TABLET PO PRN ×3 (10:02→20:49)
[2019-03-15] MEDS: METOCLOPRAMIDE 5 MG/ML, 2ML IVPush PRN ×2 (11:08→19:40)
[2019-03-15 15:41] VITALS: BP 117/87
[2019-03-15] MEDS ORDERED: METOPROLOL TARTRATE 25 MG TABLET ONE (16:32)
[2019-03-15] MEDS: METOPROLOL TARTRATE 25 MG TABLET PO SCH ×2 (16:34→17:39)
[2019-03-15 18:57] VITALS: BP 125/89
[2019-03-15] MEDS: TEMAZEPAM 15 MG CAPSULE PO PRN (22:17)
[2019-03-16] MEDS: PIPERACILLIN/TAZO/PMX 3.375GM 50 ML IV SCH ×5 (00:07→23:56)
[2019-03-16 01:30] VITALS: BP 117/83
[2019-03-16 05:14] LABS: BASOPHILS # (AUTO) 0.07 x10^3/uL (0-0.1); BASOPHILS % (AUTO) 1 % (0-1); EOSINOPHILS # (AUTO) 0.61 x10^3/uL (0-0.4); EOSINOPHILS % (AUTO) 6 % (1-7); LYMPHOCYTES # (AUTO) 4.14 x10^3/uL (1-3.4); LYMPHOCYTES % (AUTO) 42 % (22-44); MD NO; MEAN CORPUSCULAR HEMOGLOBIN 28.9 pg (27.5-34.5); MEAN CORPUSCULAR HGB CONC 32.6 g/dL (33.2-36.2); MEAN CORPUSCULAR VOLUME 88.5 fL (81-97); MEAN PLATELET VOLUME 8.5 fL (7.4-10.4); MONOCYTES # (AUTO) 0.83 x10^3/uL (0.2-0.8); MONOCYTES % (AUTO) 8 % (2-9); NEUTROPHILS # (AUTO) 4.25 x10^3/uL (1.8-6.8); NEUTROPHILS % (AUTO) 43 % (42-75); PLATELET COUNT 237 x10^3/uL (130-400); RED BLOOD COUNT 3.52 x10^6/uL (4.38-5.82); RED CELL DISTRIBUTION WIDTH 13.9 % (9.4-14.8)
[2019-03-16 05:25] LABS: ALBUMIN 1.6 g/dL (3.4-5.0); ANION GAP 5 mmol/L (5-15); CALCIUM 8.1 mg/dL (8.5-10.1); CHLORIDE 108 mmol/L (98-107)
[2019-03-16 05:30] LABS: ALANINE AMINOTRANSFERASE 12 U/L (12-78); ALKALINE PHOSPHATASE 74 U/L (45-117); BILIRUBIN,TOTAL 0.3 mg/dL (0.2-1.0); CREATININE 1.27 mg/dL (0.7-1.3); TOTAL PROTEIN 6.3 g/dL (6.4-8.2)
[2019-03-16] MEDS: POTASSIUM CHLORIDE 20 MEQ in LACTATED RINGERS 1,000 ML IV SCH ×3 (05:49→23:56)
[2019-03-16] MEDS: METOPROLOL TARTRATE 25 MG TABLET PO SCH ×2 (05:49→17:48)
[2019-03-16] MEDS: INSULIN LISPRO 100 UNITS/ML, PEN SQ-INSULIN SCH ×4 (07:00→20:13)
[2019-03-16 08:55] LABS: HCT (SEDRATE) 31.1 % (39.2-51.8)
[2019-03-16] MEDS: LACTOBACILLUS CHEW TABLET PO SCH ×3 (09:00→20:13)
[2019-03-16] MEDS: SUCRALFATE 1 GM/10 ML UDC PO SCH ×4 (09:43→20:13)
[2019-03-16] MEDS: HEPARIN 5,000 UNITS/ML, 1ML SQ SCH ×2 (09:43→20:13)
[2019-03-16] MEDS: INSULIN GLARGINE 100 UNITS/ML, PEN SQ-INSULIN SCH ×2 (09:43→20:12)
[2019-03-16] MEDS: METOCLOPRAMIDE 5 MG/ML, 2ML IVPush PRN ×2 (09:48→19:41)
[2019-03-16 14:57] VITALS: BP 134/94
[2019-03-16 18:59] VITALS: BP 141/91
[2019-03-16] MEDS: OXYcodone IR 5MG TABLET PO PRN (19:41)
[2019-03-16] MEDS: TEMAZEPAM 15 MG CAPSULE PO PRN (20:13)
[2019-03-17 00:45] VITALS: BP 137/90
[2019-03-17] MEDS: PIPERACILLIN/TAZO/PMX 3.375GM 50 ML IV SCH (05:28)
[2019-03-17] MEDS: METOPROLOL TARTRATE 25 MG TABLET PO SCH (05:29)
[2019-03-17] MEDS: METOCLOPRAMIDE 5 MG/ML, 2ML IVPush PRN (05:34)
[2019-03-17] MEDS: POTASSIUM CHLORIDE 20 MEQ in LACTATED RINGERS 1,000 ML IV SCH (05:38)
[2019-03-17 06:06] LABS: MEAN CORPUSCULAR HEMOGLOBIN 29.4 pg (27.5-34.5); MEAN CORPUSCULAR HGB CONC 32.9 g/dL (33.2-36.2); MEAN CORPUSCULAR VOLUME 89.5 fL (81-97); MEAN PLATELET VOLUME 8.6 fL (7.4-10.4); PLATELET COUNT 315 x10^3/uL (130-400); RED BLOOD COUNT 3.79 x10^6/uL (4.38-5.82); RED CELL DISTRIBUTION WIDTH 14.1 % (9.4-14.8)
[2019-03-17 06:11] LABS: ALBUMIN 1.8 g/dL (3.4-5.0); ANION GAP 4 mmol/L (5-15); CALCIUM 8.2 mg/dL (8.5-10.1); CHLORIDE 109 mmol/L (98-107)
[2019-03-17 06:16] LABS: ALANINE AMINOTRANSFERASE 14 U/L (12-78); ALKALINE PHOSPHATASE 77 U/L (45-117); BILIRUBIN,TOTAL 0.4 mg/dL (0.2-1.0); CREATININE 1.39 mg/dL (0.7-1.3)
[2019-03-17 06:34] LABS: BASOPHILS # (AUTO) 0.06 x10^3/uL (0-0.1); BASOPHILS % (AUTO) 1 % (0-1); EOSINOPHILS # (AUTO) 0.64 x10^3/uL (0-0.4); EOSINOPHILS % (AUTO) 6 % (1-7); LYMPHOCYTES # (AUTO) 5.01 x10^3/uL (1-3.4); LYMPHOCYTES % (AUTO) 44 % (22-44); MD SCAN; MONOCYTES # (AUTO) 0.91 x10^3/uL (0.2-0.8); MONOCYTES % (AUTO) 8 % (2-9); NEUTROPHILS # (AUTO) 4.75 x10^3/uL (1.8-6.8); NEUTROPHILS % (AUTO) 42 % (42-75)
[2019-03-17] MEDS: INSULIN LISPRO 100 UNITS/ML, PEN SQ-INSULIN SCH ×2 (07:00→11:00)
[2019-03-17] MEDS ORDERED: MAGNESIUM SULFATE PMX 2GM/50ML 50 ML IV ONE (08:00)
[2019-03-17 08:47] VITALS: BP 160/102
[2019-03-17] MEDS: LACTOBACILLUS CHEW TABLET PO SCH ×2 (09:00→09:25)
[2019-03-17] MEDS: HEPARIN 5,000 UNITS/ML, 1ML SQ SCH (09:24)
[2019-03-17] MEDS: SUCRALFATE 1 GM/10 ML UDC PO SCH ×2 (09:25→12:04)
[2019-03-17] MEDS: INSULIN GLARGINE 100 UNITS/ML, PEN SQ-INSULIN SCH (09:25)
[2019-03-17] MEDS ORDERED: ERTAPENEM 1 GM in SODIUM CHLORIDE 0.9% 50 ML IV SCH (10:00)
[2019-03-17 10:08] VITALS: BP 144/90
[2019-03-17] MEDS ORDERED: METO5TAB57 PO (11:40)
[2019-03-17] MEDS ORDERED: METO25TA35 PO (11:40)
[2019-03-17] MEDS ORDERED: AMOX1TAB64 PO (11:40)
[2019-03-17] MEDS ORDERED: METOPROLOL TARTRATE 25 MG TABLET PO SCH (18:00)
== END 2019-03-17 15:30 | disposition home or self-care (01) | DRG 871 ==
LOC: ED 15:30 → EDIP 15:31 → ED 15:37 → 4WST 16:56 → DCLOUNGE 03-17 15:22
PROVIDERS: ADMIT Internal Medicine; ATTEND Internal Medicine
PROC: 02HV33Z Insertion of Infusion Device into Superior Vena Cava, Percutaneous Approach (ICD-10-PCS; principal; 2019-03-10)
PROC: B548ZZA Ultrasonography of Superior Vena Cava, Guidance (ICD-10-PCS; 2019-03-10)
PROC: B5181ZA Fluoroscopy of Superior Vena Cava using Low Osmolar Contrast, Guidance (ICD-10-PCS; 2019-03-10)
DX: A41.9 Sepsis, unspecified organism (principal); R65.21 Severe sepsis with septic shock; N17.9 Acute kidney failure, unspecified; Z68.41 Body mass index [BMI] 40.0-44.9, adult; E87.1 Hypo-osmolality and hyponatremia; E11.43 Type 2 diabetes mellitus with diabetic autonomic (poly)neuropathy; K31.84 Gastroparesis; E11.22 Type 2 diabetes mellitus with diabetic chronic kidney disease; N18.9 Chronic kidney disease, unspecified; I12.9 Hypertensive chronic kidney disease with stage 1 through stage 4 chronic kidney disease, or unspecified chronic kidney disease; E87.6 Hypokalemia; D64.9 Anemia, unspecified; E66.9 Obesity, unspecified; E11.40 Type 2 diabetes mellitus with diabetic neuropathy, unspecified; G89.29 Other chronic pain; M54.9 Dorsalgia, unspecified; B35.6 Tinea cruris; E11.65 Type 2 diabetes mellitus with hyperglycemia; E86.0 Dehydration; N30.90 Cystitis, unspecified without hematuria; Z82.49 Family history of ischemic heart disease and other diseases of the circulatory system; Z83.3 Family history of diabetes mellitus; Z85.6 Personal history of leukemia
CPT/HCPCS: 36415; 76870; 84145; 99285; J3370; 36573; 71045; 74176; 78582; 80048; 80053; 80076; 81001; 82010; 82040; 82570; 82803; 82962; 83036; 83605; 83735; 84100; 84300; 84443; 85025; 85651; 86140; 87040; 87086; 87324; 89055; 93005; 96374; 96375; G0378; J0696; J1335; J1644; J2405; J2543; J2550; J3475; J3480; Q0162; A9540; A9558; C1751; C9898; J1815; J2270; J2765; J7030; J7040; J7120

== ENCOUNTER 2019-04-06 20:04 | Inpatient (IN) | payer OTHER ==
[~2019-04-06] VITALS: Ht 167.6 cm; Wt 107.6 kg
[2019-04-15 13:53] VITALS: BP 102/71
== END 2019-04-15 19:10 | disposition home or self-care (01) | DRG 371 ==
LOC: ED 23:12 → EDIP 04-07 01:38 → 4EST 04-07 02:32
PROVIDERS: ADMIT Internal Medicine; ATTEND Internal Medicine
PROC: 0DB68ZX Excision of Stomach, Via Natural or Artificial Opening Endoscopic, Diagnostic (ICD-10-PCS; principal; 2019-04-14)
PROC: 0DB78ZX Excision of Stomach, Pylorus, Via Natural or Artificial Opening Endoscopic, Diagnostic (ICD-10-PCS; 2019-04-14)
PROC: 0DB58ZX Excision of Esophagus, Via Natural or Artificial Opening Endoscopic, Diagnostic (ICD-10-PCS; 2019-04-14)
DX: A04.72 Enterocolitis due to Clostridium difficile, not specified as recurrent (principal); N17.0 Acute kidney failure with tubular necrosis; N39.0 Urinary tract infection, site not specified; B37.81 Candidal esophagitis; E11.43 Type 2 diabetes mellitus with diabetic autonomic (poly)neuropathy; K31.3 Pylorospasm, not elsewhere classified; E11.22 Type 2 diabetes mellitus with diabetic chronic kidney disease; E87.6 Hypokalemia; G89.29 Other chronic pain; M54.9 Dorsalgia, unspecified; K31.84 Gastroparesis; E11.65 Type 2 diabetes mellitus with hyperglycemia; E66.01 Morbid (severe) obesity due to excess calories; I12.9 Hypertensive chronic kidney disease with stage 1 through stage 4 chronic kidney disease, or unspecified chronic kidney disease; N18.2 Chronic kidney disease, stage 2 (mild); K29.70 Gastritis, unspecified, without bleeding; Z79.4 Long term (current) use of insulin; Z82.49 Family history of ischemic heart disease and other diseases of the circulatory system; Z91.19 Patient's noncompliance with other medical treatment and regimen; Z68.38 Body mass index [BMI] 38.0-38.9, adult
CPT/HCPCS: 36415; 74250; 87046; 87427; 99285; J3370; 71045; 78264; 80048; 80053; 81001; 82010; 82803; 82962; 83605; 83690; 84484; 85025; 87040; 87086; 87324; 88305; 88312; 89055; 93005; 96372; 96374; 96376; G0378; J1650; J2405; J2550; J2704; A9541; C9898; J1200; J1815; J2270; J2765; J7030

== ENCOUNTER 2019-04-23 01:38 | Inpatient (IN) | payer OTHER ==
[~2019-04-23] VITALS: Ht 175.3 cm; Wt 106.9 kg
[2019-04-26 07:56] VITALS: BP 161/99
== END 2019-04-26 12:10 | disposition home or self-care (01) | DRG 368 ==
LOC: 4WST 02:16
PROVIDERS: ADMIT Internal Medicine; ATTEND Internal Medicine
DX: B37.81 Candidal esophagitis (principal); E43 Unspecified severe protein-calorie malnutrition; A04.72 Enterocolitis due to Clostridium difficile, not specified as recurrent; K31.84 Gastroparesis; E11.43 Type 2 diabetes mellitus with diabetic autonomic (poly)neuropathy; G89.29 Other chronic pain; I10 Essential (primary) hypertension; I34.0 Nonrheumatic mitral (valve) insufficiency; Z79.4 Long term (current) use of insulin; Z82.49 Family history of ischemic heart disease and other diseases of the circulatory system; Z90.49 Acquired absence of other specified parts of digestive tract; K31.3 Pylorospasm, not elsewhere classified; E86.0 Dehydration
CPT/HCPCS: 36415; J3370; 0399T; 80048; 80053; 82962; 83036; 83735; 84484; 85025; 93306; G0378; J2405; J1450; J1815; J2270; J2765; J3475; J7030